=== PATIENT | female | born 1950 | race Caucasian/White ===

== ENCOUNTER 2017-01-29 15:19 | Inpatient (IN) | payer MEDICAID ==
[~2017-01-29] VITALS: Ht 167.6 cm; Wt 59.0 kg
[2017-01-29 15:19] VITALS: BP 141/84; PULSE 81; RESP 16; TEMP 97.7; O2SAT 98
--- NOTE | 2017-01-29 15:19 | NUR ---
Pt report received from ROXANA Willingham. Pt developed SOB, low B/P, and C/P during dialysis tx. Pt completed 1.5 of tx. Pt AAOx4, even and non-labored respirations, BBS clear. Pt describes chest discomfort as pressure at 7/10. Pt received 3 NTG SL and ASA en route per ALS.
--- NOTE | 2017-01-29 15:19 | NUR ---
Patient to ER bed 2 to gown for evaluation. Side rails up. Report given to MARJ SCHMIDT.
--- NOTE | 2017-01-29 15:25 | NUR ---
Dr. Sahni at bedside to assess pt.
--- NOTE | 2017-01-29 15:30 | NUR ---
# 18 gauge angiocath placed to LAC. Use of asceptic technique. Opsite placed over site. Blood return noted. Blood for lab drawn from site. Flushed with 10 cc of normal saline. No evidence of infiltration noted. Patient tolerated well.
[2017-01-29 16:00] LABS: BASOPHILS # (AUTO) 0.1 K/uL (0.0-0.2); BASOPHILS % (AUTO) 0.8 % (0.0-2.0); EOSINOPHILS # (AUTO) 0.5 K/uL (0.0-0.4); EOSINOPHILS % (AUTO) 5.8 % (0.0-4.0); HEMATOCRIT 39.5 % (36-48); HEMOGLOBIN 13.2 g/dL (12.0-16.0); LYMPHOCYTES # (AUTO) 1.7 K/uL (1.0-5.5); LYMPHOCYTES % (AUTO) 21.1 % (20.5-51.5); MEAN CORPUSCULAR HEMOGLOBIN 31 pg (27-31); MEAN CORPUSCULAR HGB CONC 33 % (32-36); MEAN CORPUSCULAR VOLUME 92 fL (79.0-98.0); MONOCYTES # (AUTO) 0.6 K/uL (0.0-1.0); MONOCYTES % (AUTO) 7.8 % (1.7-9.3); NEUTROPHILS # (AUTO) 5.2 K/uL (1.8-7.7); NEUTROPHILS % (AUTO) 64.5 % (40.0-70.0); PLATELET COUNT (AUTO) 154 K/uL (130-430); RED BLOOD CELL COUNT(AUTO) 4.29 MIL/uL (4.2-6.2); RED CELL DISTRIBUTION WIDTH 15.5 % (9.0-15.0); WHITE BLOOD COUNT (AUTO) 8.1 K/uL (4.8-10.8)
[2017-01-29] MEDS ORDERED: ASPIRIN 325 MG TABLET PO ONE (16:00)
[2017-01-29] MEDS ORDERED: MORPHINE SULFATE 10 MG/ML VIAL IVP ONE (16:00)
[2017-01-29] MEDS ORDERED: NITROGLYCERIN 0.4 MG TAB.SUBL SL ONE (16:00)
[2017-01-29 16:09] LABS: PROTHROMBIN TIME 10.9 SECS (9.5-12.5)
[2017-01-29 16:12] LABS: CALCIUM 8.8 mg/dL (8.4-11.0); CREATININE 2.9 mg/dL (0.55-1.30); POTASSIUM 3.6 mmol/L (3.5-5.1)
[2017-01-29 16:17] LABS: ALBUMIN 3.3 g/dL (3.4-4.8); TOTAL BILIRUBIN 0.4 mg/dL (0.0-1.0); TOTAL PROTEIN, SERUM 7.6 g/dL (6.4-8.3)
--- NOTE | 2017-01-29 16:38 | NUR ---
Dr. Ovalle at bedside to discuss POC.
--- NOTE | 2017-01-29 16:44 | NUR ---
medicated pt per md order, dr rosa speaking to pt and family regarding POC
[2017-01-29] MEDS ORDERED: CLOPIDOGREL BISULFATE 75 MG TABLET PO ONE (16:45)
[2017-01-29] MEDS ORDERED: HEPARIN 25,000 UNITS/D5W 250ML 250 ML IV ONE (16:45)
[2017-01-29] MEDS ORDERED: PANTOPRAZOLE SODIUM 40 MG/VIAL (PROTONIX) IVP ONE (16:45)
--- NOTE | 2017-01-29 17:00 | NUR ---
Heparin Protocol in use for Heparin bolus and infusion. Per protocol, Heparin Bolus = 4000Units. Heparin Maintenance 700 Units/hr or 7 mL/hr. Verified with Dr. Ovalle.
[2017-01-29] MEDS ORDERED: NITROGLYCERIN 1 INCH (GM) OINT. TP ONE (17:45)
--- NOTE | 2017-01-29 18:00 | NUR ---
Pt AAOx4, speaking with family members. No needs verbalized at this time.
[2017-01-29] MEDS ORDERED: AMLO2.5T2 PO (18:40)
[2017-01-29] MEDS ORDERED: LIP40 PO (18:40)
[2017-01-29] MEDS ORDERED: TICA60TA PO (18:40)
[2017-01-29] MEDS ORDERED: ZOLP5TAB2 PO (18:40)
[2017-01-29] MEDS ORDERED: CHOL100053 PO (18:40)
[2017-01-29] MEDS ORDERED: FOLI-43 PO (18:40)
[2017-01-29] MEDS ORDERED: NITR0.4T6 SL (18:40)
[2017-01-29] MEDS ORDERED: PRO40 PO (18:40)
[2017-01-29] MEDS ORDERED: FURO40TA5 PO (18:40)
[2017-01-29] MEDS ORDERED: FOLI0.8T2 PO (18:40)
[2017-01-29] MEDS ORDERED: CARV12.548 PO (18:40)
[2017-01-29] MEDS ORDERED: ASPI-1063 PO (18:40)
[2017-01-29] MEDS ORDERED: CLOP75TA2 PO (18:40)
[2017-01-29] MEDS ORDERED: ERGO400C2 PO (18:40)
[2017-01-29] MEDS ORDERED: HYDR-1189 PO (18:40)
--- NOTE | 2017-01-29 18:40 | NUR ---
Patient will be admitted to care of Dr. Acosta. Admitted to Tele unit. Will go to room 117A. Belongings list completed. Summary report printed. Bedside report given to receiving RN.
--- NOTE | 2017-01-29 18:40 | NUR ---
Medication reconciliation completed with information provided by PATIENT. Any prior medication reconciliation on file was reviewed and corrected.
[2017-01-29 18:50] VITALS: BP 154/91; PULSE 69; RESP 17; TEMP 97.2; O2SAT 98
--- NOTE | 2017-01-29 18:53 | NUR ---
ADMISSION NOTE Received patient from ER via gurney. Patient admitted with diagnosis of chest r/o mi.. Patient oriented to hospital routine, call light, toileting and safety-patient verbalized understanding.
[2017-01-29] MEDS ORDERED: NITROGLYCERIN 0.4 MG TAB.SUBL SL PRN (19:00)
[2017-01-29] MEDS ORDERED: HYDROcodone/ACETAMIN 5-325 MG TAB (NORCO/ VICODIN) PO PRN (19:00)
[2017-01-29] MEDS ORDERED: ACETAMINOPHEN 325 MG TABLET PO PRN (19:15)
--- NOTE | 2017-01-29 19:15 | NUR ---
CONSULTATION PAGED REASON FOR CONSULTATION:ESRD WAS CONSULT CALLED?Y PERSON WHO WAS NOTIFIED:DEVONTE CONSULTING PHYSICIAN:YANIV VILLEGAS (MELANIE LIRA HOUSING QUALITY STANDARD INSPECTOR) AUTOMATIC TRIMMING SEWER SPECIALTY:NEPHROLOGY AUTOMATIC TRIMMING SEWER PHONE NUMBER:[phone]
--- NOTE | 2017-01-29 19:23 | NUR ---
CONSULTATION PAGED REASON FOR CONSULTATION:C/P R/O PR WAS CONSULT CALLED?Y PERSON WHO WAS NOTIFIED:JAMIE CONSULTING PHYSICIAN:EMMY ROBERTSON (NINA TURNER) PETROLEUM INSPECTOR SUPERVISOR SPECIALTY:CARDIO PETROLEUM INSPECTOR SUPERVISOR PHONE NUMBER:[phone]
--- NOTE | 2017-01-29 19:49 | NUR ---
OPENING NOTES PATIENT IS IN BED SITTING UP WATCHING TV. PATIENT HAS NO COMPLAINTS OF CHEST PAIN. VITAL SIGNS ARE STABLE. NO SIGN OF DISTRESS. BREATHING IS NON LABORED. IV IS PATENT AND SHOWS NO SIGNS OF COMPLICATION. BED SIDE COMMODE WAS PLACED AT BEDSIDE. PATIENT INSTRUCTED TO CALL FOR ASSISTANCE. CALL LIGHT IS WITHIN REACH. BED ALARM IS ON. SAFETY MEASURES ARE IN PLACE. WILL CONTINUE TO MONITOR.
--- NOTE | 2017-01-29 20:19 | NUR ---
RODOLFO FROM LAB CALLED REGARDING TROPONIN OF 0.395. WILL NOTIFY
[2017-01-29 20:30] VITALS: BP 124/72; PULSE 76; RESP 15; TEMP 98.6; O2SAT 97
--- NOTE | 2017-01-29 20:45 | NUR ---
SPOKE TO MD REGARDING TROPONIN/ DO NOT CALL FOR TROPONIN RESULTS SPOKE TO DOCTOR CALDERON REGARDING PATIENT CRITICAL TROPONIN OF 0.395. STATED OKAY. MD STATED THAT IT WAS UNNECESSARY TO CALL HIM FOR ANYMORE TROPONIN RESULTS.
--- NOTE | 2017-01-29 21:15 | NUR ---
ROUNDS PATIENT IS IN BED WATCHING TV. NO SIGNS OF DISTRESS. BREATHING IS NON LABORED. PATIENT HAS NO COMPLAINTS OF CHEST PAIN. CALL LIGHT IS WITHIN REACH. BED ALARM IS ON. WILL CONTINUE TO MONITOR.
[2017-01-29] MEDS: FUROSEMIDE 40 MG TABLET PO SCH (21:41)
[2017-01-29] MEDS: CARVEDILOL 12.5 MG TABLET (COREG) PO SCH (21:41)
[2017-01-29] MEDS: ZOLPIDEM TARTRATE 5 MG TABLET PO SCH (21:50)
[2017-01-29] MEDS: HYDROcodone/ACETAMIN 5-325 MG TAB (NORCO/ VICODIN) PO PRN (21:50)
--- NOTE | 2017-01-30 00:30 | NUR ---
ASSISTED PATIENT TO THE COMMODE AND BACK INTO BED. PATIENT HAS NO COMPLAINTS OF CHEST PAIN. NO SIGNS OF DISTRESS. BREATHING IS NON LABORED. CALL LIGHT IS WITHIN REACH. WILL CONTINUE TO MONITOR.
--- NOTE | 2017-01-30 01:01 | NUR ---
PAGED PAGED DILAN CHOI AT [phone] SPOKE WITH SUNITA.
[2017-01-30 01:13] VITALS: BP 111/59; PULSE 65; RESP 17; TEMP 98.2; O2SAT 98
--- NOTE | 2017-01-30 01:13 | NUR ---
SPOKE TO DOCTOR GRAZYNA/ MELISSA HEPARIN DRIP SPOKE TO DOCTOR GERONIMO REGARDING CLARIFICATION OF HEPARIN DRIP PROTOCOL. STATED TO D/C HEPARIN DRIP. STATED THAT PATIENT HAS SCHEDULED ANTICOAGULANT.
[2017-01-30] MEDS ORDERED: COMMUNICATION ORDER XX ONE (01:15)
--- NOTE | 2017-01-30 03:20 | NUR ---
ROUNDS PATIENT IS IN BED SLEEPING. NO SIGNS OF DISTRESS. BREATHING IS NON LABORED. CALL LIGHT IS WITHIN REACH. BED ALARM IS ON. WILL CONTINUE TO MONITOR.
[2017-01-30 05:16] VITALS: BP 125/82; PULSE 83; RESP 17; TEMP 98.4; O2SAT 97
--- NOTE | 2017-01-30 05:46 | NUR ---
ROUNDS PATIENT IS IN BED RESTING COMFORTABLY. NO SIGNS OF DISTRESS. BREATHING IS NON LABORED. PATIENT HAS NO COMPLAINTS OF PAIN. CALL LIGHT IS WITHIN REACH. BED ALARM IS ON. WILL CONTINUE TO MONITOR.
--- NOTE | 2017-01-30 07:00 | NUR ---
CLOSING NOTES PATIENT IS A/OX4. NO SIGNS OF DISTRESS. BREATHING IS NON LABORED. PATIENT HAS NO COMPLAINTS OF PAIN. IV IS PATENT AND SHOWS NO SIGNS OF COMPLICATIONS. CALL LIGHT IS WITHIN REACH. BED ALARM IS ON. WILL ENDORSE ALL CARE TO MORNING NURSE.
[2017-01-30 07:48] LABS: BASOPHILS # (AUTO) 0.1 K/uL (0.0-0.2); BASOPHILS % (AUTO) 0.9 % (0.0-2.0); EOSINOPHILS # (AUTO) 0.4 K/uL (0.0-0.4); EOSINOPHILS % (AUTO) 6.7 % (0.0-4.0); HEMATOCRIT 35.3 % (36-48); HEMOGLOBIN 11.8 g/dL (12.0-16.0); MEAN CORPUSCULAR HEMOGLOBIN 31 pg (27-31); MEAN CORPUSCULAR HGB CONC 33 % (32-36); MEAN CORPUSCULAR VOLUME 93 fL (79.0-98.0); MONOCYTES % (AUTO) 14.6 % (1.7-9.3); NEUTROPHILS % (AUTO) 46.8 % (40.0-70.0); PLATELET COUNT (AUTO) 121 K/uL (130-430); RED BLOOD CELL COUNT(AUTO) 3.81 MIL/uL (4.2-6.2); RED CELL DISTRIBUTION WIDTH 15.4 % (9.0-15.0); WHITE BLOOD COUNT (AUTO) 6.5 K/uL (4.8-10.8)
--- NOTE | 2017-01-30 08:19 | NUR ---
OPENING NOTE RECEIVED REPORT FROM NIGHT NURSE, PATIENT IS RESTING COMFORTABLY IN BED WITH NO COMPLAINTS OF PAIN, NO NOTED DISTRESS, DISCOMFORT OR SOB. PATIENT IS ALERT AND ORIENTED AND ABLE TO COMMUNICATE NEEDS TO STAFF. PATIENT IS AMBULATORY WITH ASSISTANCE. BED IS IN LOWEST POSITION AND IS EDUCATED NOT TO GET UP WITHOUT ASSISTANCE. CALL LIGHT IS WITHIN REACH AND WILL CONTINUE TO MONITOR.
[2017-01-30 08:37] LABS: CALCIUM 8.4 mg/dL (8.4-11.0); CREATININE 4.33 mg/dL (0.55-1.30); POTASSIUM 4.6 mmol/L (3.5-5.1); TOTAL BILIRUBIN 0.2 mg/dL (0.0-1.0); TOTAL PROTEIN, SERUM 6.9 g/dL (6.4-8.3)
[2017-01-30 08:45] VITALS: BP 122/75; PULSE 70; RESP 18; TEMP 99.1; O2SAT 96
[2017-01-30] MEDS: PANTOPRAZOLE SODIUM 40 MG TAB PO SCH (08:56)
[2017-01-30] MEDS: CARVEDILOL 12.5 MG TABLET (COREG) PO SCH ×2 (08:56→21:09)
[2017-01-30] MEDS: CLOPIDOGREL BISULFATE 75 MG TABLET PO SCH (08:56)
[2017-01-30] MEDS: FOLIC ACID 1 MG TABLET PO SCH (08:57)
[2017-01-30] MEDS: ASPIRIN 81 MG TABLET(ECOTRIN) PO SCH (08:57)
[2017-01-30] MEDS: ATORVASTATIN 20 MG TABLET PO SCH (08:57)
[2017-01-30] MEDS: FUROSEMIDE 40 MG TABLET PO SCH ×2 (08:57→21:08)
[2017-01-30] MEDS: amLODIPine BESYLATE 5 MG TABLET PO SCH (08:58)
--- NOTE | 2017-01-30 10:44 | NUR ---
NOTE PATIENT IS RESTING IN BED COMFORTABLY WITH NO COMPLAINTS OF PAIN, NO NOTED DISTRESS, DISCOMFORT OR SOB. PATIENT HAD AN ECHO DONE AND EF IS 30-35%. NEW ORDERS WERE NOTED. CALL LIGHT IS WITHIN REACH AND WILL CONTINUE TO MONITOR.
--- NOTE | 2017-01-30 12:00 | NUR ---
NOTE PATIENT WENT OUTSIDE TO SMOKE AND THE PATIENT WAS EDUCATED TO HAVE AN NURSE WITH HER WHEN SHE GOES OUT AND TO SIGN THE CONSENT TO SMOKE, WHICH WAS SIGNED. THE PATIENT VERBALIZED UNDERSTANDING. NO COMPLAINTS OF PAIN, NO NOTED DISTRESS, DISCOMFORT OR SOB. BED IS IN LOWEST POSITION AND CALL LIGHT IS WITHIN REACH. WILL CONTINUE TO MONITOR.
[2017-01-30 12:30] VITALS: BP 148/78; PULSE 76; RESP 18; TEMP 99.6; O2SAT 96
--- NOTE | 2017-01-30 14:30 | NUR ---
NOTE PATIENT IS RESTING IN BED COMFORTABLY WITH NO COMPLAINTS OF PAIN, NO NOTED DISTRESS, DISCOMFORT OR SOB. DR SENA SAW THE PATIENT WELL DR SOLIS. NO NEW ORDERS WERE NOTED AT THIS TIME. CALL LIGHT IS WITHIN REACH AND BED IS IN LOWEST POSITION
[2017-01-30 16:33] VITALS: BP 137/76; PULSE 77; RESP 17; TEMP 98.8; O2SAT 95
--- NOTE | 2017-01-30 16:49 | NUR ---
NOTE PATIENT IS RESTING IN BED COMFORTABLY WITH NO COMPLAINTS OF PAIN, NO NOTED DISTRESS, DISCOMFORT OR SOB. HD WAS ORDERED FOR TOMORROW AND CONSENT WAS OBTAINED. CALL LIGHT IS WITHIN REACH AND WILL CONTINUE TO MONITOR
[2017-01-30 17:22] LABS: CALCIUM 8.5 mg/dL (8.4-11.0); CREATININE 4.74 mg/dL (0.55-1.30); POTASSIUM 4.8 mmol/L (3.5-5.1)
--- NOTE | 2017-01-30 18:25 | NUR ---
CLOSING NOTE PATIENT IS RESTING IN BED COMFORTABLY WITH NO COMPLAINTS OF PAIN, NO NOTED DISTRESS, DISCOMFORT OR SOB. PATIENT IS AMBULATORY AND ON ROOM AIR. CALL LIGHT IS WITHIN REACH AND BED IS IN LOWEST POSITION. WILL GIVE REPORT TO NIGHT NURSE.
[2017-01-30 19:30] VITALS: BP 134/81; PULSE 71; RESP 18; TEMP 97.1; O2SAT 98
--- NOTE | 2017-01-30 19:30 | NUR ---
notes received the pt from the day nurse,pt a/a/ox4 no c/o pain or discomfort.monitor in place,iv to lt forearm intact,no redness or swelling noted.bed alarm is on. liv catheter intact to rt chest,dressing dry and intact.vs taken.call light within reach ,safety measures in progress.continue to monitor.
[2017-01-30] MEDS: HYDROcodone/ACETAMIN 5-325 MG TAB (NORCO/ VICODIN) PO PRN (21:10)
[2017-01-30] MEDS: ZOLPIDEM TARTRATE 5 MG TABLET PO SCH (21:10)
--- NOTE | 2017-01-30 21:45 | NUR ---
notes pt feeling better.watching tv with no complaints.
--- NOTE | 2017-01-30 23:55 | NUR ---
notes pt sleeping,no distress noted call light within reach.continue to monitor.
[2017-01-31 01:27] VITALS: BP 144/77; PULSE 71; RESP 18; TEMP 97.5; O2SAT 97
--- NOTE | 2017-01-31 01:30 | NUR ---
pt remains asleep,call light within reach.continue to monitor.
[2017-01-31 03:31] VITALS: BP 139/73; PULSE 73; RESP 18; TEMP 97.6; O2SAT 97
--- NOTE | 2017-01-31 03:43 | NUR ---
paged for Dr Berg, dialed . s/w Yasemin.
--- NOTE | 2017-01-31 03:44 | NUR ---
critical labs call placed to dr membreno for a critical troponin of 0.078.
--- NOTE | 2017-01-31 03:46 | NUR ---
notes dr membreno called back,no new orders taken.pt remains asleep.
--- NOTE | 2017-01-31 05:38 | NUR ---
notes pt sleeping.call light within reach.continue to monitor.
--- NOTE | 2017-01-31 06:21 | NUR ---
closing notes pt sleeping,no distress noted.will endorse the care of the pt to the day nurse.
[2017-01-31 06:35] LABS: ALBUMIN 3.2 g/dL (3.4-4.8); CALCIUM 8.9 mg/dL (8.4-11.0); CREATININE 5.12 mg/dL (0.55-1.30); PHOSPHORUS 5.7 mg/dL (2.7-4.5); POTASSIUM 5.1 mmol/L (3.5-5.1); TOTAL BILIRUBIN 0.4 mg/dL (0.0-1.0); TOTAL PROTEIN, SERUM 7.4 g/dL (6.4-8.3)
[2017-01-31 06:56] LABS: BASOPHILS # (AUTO) 0.1 K/uL (0.0-0.2); BASOPHILS % (AUTO) 0.9 % (0.0-2.0); EOSINOPHILS # (AUTO) 0.5 K/uL (0.0-0.4); EOSINOPHILS % (AUTO) 6.5 % (0.0-4.0); HEMATOCRIT 38.1 % (36-48); HEMOGLOBIN 12.5 g/dL (12.0-16.0); LYMPHOCYTES % (AUTO) 28.3 % (20.5-51.5); MEAN CORPUSCULAR HEMOGLOBIN 31 pg (27-31); MEAN CORPUSCULAR HGB CONC 33 % (32-36); MEAN CORPUSCULAR VOLUME 93 fL (79.0-98.0); MONOCYTES # (AUTO) 0.9 K/uL (0.0-1.0); MONOCYTES % (AUTO) 12.6 % (1.7-9.3); NEUTROPHILS # (AUTO) 3.6 K/uL (1.8-7.7); NEUTROPHILS % (AUTO) 51.7 % (40.0-70.0); PLATELET COUNT (AUTO) 132 K/uL (130-430); RED BLOOD CELL COUNT(AUTO) 4.08 MIL/uL (4.2-6.2); WHITE BLOOD COUNT (AUTO) 7.1 K/uL (4.8-10.8)
[2017-01-31 08:00] VITALS: BP 147/79; PULSE 68; RESP 20; TEMP 97.8; O2SAT 99
--- NOTE | 2017-01-31 08:42 | NUR ---
OPENING NOTE RECEIVED REPORT FROM NIGHT NURSE, PATIENT IS RESTING IN BED COMFORTABLY WITH NO COMPLAINTS OF PAIN, NO NOTED DISTRESS, DISCOMFORT OR SOB. PATIENT IS ALERT AND ORIENTED AND ABLE TO COMMUNICATE NEEDS TO STAFF. PATIENT IS AMBULATORY WITH ASSISTANCE. PATIENT IS EDUCATED NOT TO GET UP WITHOUT ASSISTANCE. BED IS IN LOWEST POSITION AND CALL LIGHT IS WITHIN REACH. PATIENT IS HAVING DIALYSIS AT THIS TIME. WILL CONTINUE TO MONITOR.
--- NOTE | 2017-01-31 11:04 | NUR ---
NOTE PATIENT IS STILL DOING DIALYSIS AND IS IN STABLE CONDITION WITH NO COMPLAINTS OF PAIN, NO NOTED DISTRESS, DISCOMFORT OR SOB. CALL LIGHT IS WITHIN REACH AND WILL CONTINUE TO MONITOR.
[2017-01-31 11:53] VITALS: BP 136/77; PULSE 69; RESP 16; TEMP 97.6; O2SAT 97
[2017-01-31] MEDS ORDERED: ALBU8.5H8 INH (12:33)
[2017-01-31] MEDS: CARVEDILOL 12.5 MG TABLET (COREG) PO SCH (12:35)
[2017-01-31] MEDS: ASPIRIN 81 MG TABLET(ECOTRIN) PO SCH (12:35)
[2017-01-31] MEDS: FUROSEMIDE 40 MG TABLET PO SCH (12:36)
[2017-01-31] MEDS: ATORVASTATIN 20 MG TABLET PO SCH (12:36)
[2017-01-31] MEDS: FOLIC ACID 1 MG TABLET PO SCH (12:36)
[2017-01-31] MEDS: PANTOPRAZOLE SODIUM 40 MG TAB PO SCH (12:37)
[2017-01-31] MEDS: CLOPIDOGREL BISULFATE 75 MG TABLET PO SCH (12:37)
[2017-01-31] MEDS: amLODIPine BESYLATE 5 MG TABLET PO SCH (12:37)
[2017-01-31 13:01] VITALS: BP 136/77; PULSE 69; RESP 16; TEMP 97.6; O2SAT 97
--- NOTE | 2017-01-31 14:59 | NUR ---
DISCHARGE PATIENT WAS GIVEN TRANSITION OF CARE INSTRUCTIONS AND VERBALIZED UNDERSTANDING. PATIENT'S IV WAS TAKEN OUT, AND ARM BAND WAS REMOVED. PATIENT LEFT IN STABLE CONDITION WITH NO COMPLAINTS OF PAIN, NO NOTED DISTRESS, DISCOMFORT OR SOB. PATIENT WAS WHEELED TO CAR BY CRACKING AND FANNING MACHINE OPERATOR. ALL BELONGINGS WERE TAKEN WITH THE PATIENT.
--- NOTE | 2017-02-04 14:37 | NUR ---
Discharge Follow Up Phone Call LOW HEEL BUILDER phoned patient, , and the line disconnected. LOW HEEL BUILDER phoned patient's daughter, Ofelia [phone], with whom patient now lives, and spoke with patient. Patient stated she had dialysis yesterday and did not have any complications. She is monitoring her blood pressure. She is awaiting a call back for her follow up appointments. She was going to fill her prescription today. She had no questions or concerns.
== END 2017-01-31 14:55 | disposition home or self-care (01) | DRG 198 ==
LOC: SED 15:19 → STU 18:33
PROVIDERS: ADMIT Internal Medicine; ATTEND Internal Medicine
PROC: 5A1D60Z (ICD-10-PCS; principal; 2017-01-29)
DX: I24.9 Acute ischemic heart disease, unspecified (principal); I13.2 Hypertensive heart and chronic kidney disease with heart failure and with stage 5 chronic kidney disease, or end stage renal disease; N17.9 Acute kidney failure, unspecified; I95.9 Hypotension, unspecified; E87.1 Hypo-osmolality and hyponatremia; N18.6 End stage renal disease; J44.9 Chronic obstructive pulmonary disease, unspecified; I50.9 Heart failure, unspecified; I25.10 Atherosclerotic heart disease of native coronary artery without angina pectoris; F10.20 Alcohol dependence, uncomplicated; K21.9 Gastro-esophageal reflux disease without esophagitis; E78.5 Hyperlipidemia, unspecified; F17.200 Nicotine dependence, unspecified, uncomplicated; M48.06 Spinal stenosis, lumbar region; M19.90 Unspecified osteoarthritis, unspecified site; Z90.49 Acquired absence of other specified parts of digestive tract; I25.2 Old myocardial infarction; Z79.02 Long term (current) use of antithrombotics/antiplatelets; Z79.82 Long term (current) use of aspirin; Z99.2 Dependence on renal dialysis; Z95.5 Presence of coronary angioplasty implant and graft; Z82.49 Family history of ischemic heart disease and other diseases of the circulatory system
CPT/HCPCS: 36415; 71010; 80048; 80053; 80061; 82550-TC; 83880; 84100-TC; 84484; 85025; 85610-TC; 85730-TC; 87081; 90935; 93005; 93306; 96374; 96375; 99285; C9113; J1644; J2270; J7030